=== PATIENT | female | born 1960 | race African-American/Black ===

== ENCOUNTER → 2024-05-08 16:37 | Outpatient (REF) | payer OTHER, SELFPAY | LOC: HWRAD 16:37 | PROVIDERS: ATTENDING PHYSICIAN Nurse Practitioner | DX: M54.2 Cervicalgia (principal) | CPT/HCPCS: 72050 ==

== ENCOUNTER → 2024-06-12 06:40 | Outpatient (REF) | payer OTHER, SELFPAY | LOC: PAVMRI 06:40 | PROVIDERS: ATTENDING PHYSICIAN Pain Medicine Interventional Pain Medicine; FAMILY PHYSICIAN Internal Medicine | DX: M54.12 Radiculopathy, cervical region (principal) | CPT/HCPCS: 72141 ==

== ENCOUNTER → 2024-10-18 16:42 | Outpatient (REF) | payer OTHER, SELFPAY | LOC: HWRAD 16:42 | PROVIDERS: ATTENDING PHYSICIAN Internal Medicine Rheumatology; FAMILY PHYSICIAN Internal Medicine | DX: M06.4 Inflammatory polyarthropathy (principal); M15.9 Polyosteoarthritis, unspecified; R76.8 Other specified abnormal immunological findings in serum | CPT/HCPCS: 73130; 73560; 73565 ==

== ENCOUNTER → 2025-06-03 17:22 | Outpatient (REF) | payer OTHER, SELFPAY | LOC: WDC 17:22 | PROVIDERS: ATTENDING PHYSICIAN Nurse Practitioner | DX: Z12.31 Encounter for screening mammogram for malignant neoplasm of breast (principal) | CPT/HCPCS: 77063; 77067 ==